=== PATIENT | female | born 1990 | race Caucasian/White ===

== ENCOUNTER 2025-10-08 01:26 | Emergency (ER) | payer MEDICAID ==
[~2025-10-08] VITALS: Ht 167.6 cm; Wt 66.0 kg
[2025-10-08 01:30] VITALS: PULSE 110; RESP 16; O2SAT 100
[2025-10-08 01:35] VITALS: BP 163/73; TEMP 36.8; O2SAT 100
[2025-10-08 03:28] LABS: BASOPHILS % 0.8 % (0.0-2.0); EOSINOPHILS % 1.4 % (0.0-5.0); HEMATOCRIT. 27.7 % (36.0-48.0); HEMOGLOBIN. 8.5 g/dL (12.0-16.0); LYMPHOCYTES % 15.9 % (20.0-50.0); MEAN PLATELET VOLUME 7.6 fl (7.4-10.4); MONOCYTES % 5.5 % (2.0-8.0); NEUTROPHILS % 76.4 % (40.0-76.0); PLATELET 421 x1000/uL (130-400); RED BLOOD CELL COUNT 3.98 mill/uL (4.2-5.4); RED CELL DISTRIBUTION WIDTH 17.6 % (11.6-14.6)
[2025-10-08 03:39] LABS: CREATININE 0.8 mg/dL (0.6-1.0); UREA NITROGEN BLOOD 13 mg/dL (9-23)
[2025-10-08] MEDS: SODIUM CHLORIDE 0.9% 500 ML IV ONE (03:41)
[2025-10-08 03:54] LABS: ADD RBC MORPHOLOGY YES
[2025-10-08 04:51] LABS: CLARITY URINE CLEAR (CLEAR); COLOR URINE YELLOW (YELLOW); GLUCOSE URINE NEGATIVE (NEGATIVE); KETONES URINE NEGATIVE (NEGATIVE); LEUKOCYTE ESTERASE URINE NEGATIVE (NEGATIVE); NITRITE URINE NEGATIVE (NEGATIVE); OCCULT BLOOD URINE NEGATIVE (NEGATIVE); PH URINE 7.5 (4.5-8.0); PROTEIN URINE NEGATIVE (NEGATIVE); SPECIFIC GRAVITY URINE 1.018 (1.005-1.030); UROBILINOGEN URINE 0.2 E.U./dL (0.2-1.0)
[2025-10-08] MEDS ORDERED: FERR324T4 MT (05:21)
[2025-10-08 05:23] LABS: PLATELET ESTIMATE SLIGHTLY INCREASED
[2025-10-08 05:35] LABS: *AMPHETAMINES SCREEN URINE NEGATIVE (NEGATIVE); *BENZODIAZEPINES SCREEN URINE NEGATIVE (NEGATIVE)
[2025-10-08 05:36] LABS: *BARBITURATES SCREEN URINE NEGATIVE (NEGATIVE); *COCAINE SCREEN URINE NEGATIVE (NEGATIVE); CANNABINOID URINE SCREEN NEGATIVE (NEGATIVE); METHADONE URINE SCREEN NEGATIVE (NEGATIVE); OPIATES URINE SCREEN NEGATIVE (NEGATIVE); PHENCYCLIDINE URINE SCREEN NEGATIVE (NEGATIVE)
[2025-10-08 05:58] LABS: ECSTASY MDMA SCREEN URINE NEGATIVE (NEGATIVE)
== END 2025-10-08 05:32 | disposition home or self-care (01) ==
LOC: ER 01:26
DX: R53.1 Weakness (principal); D50.9 Iron deficiency anemia, unspecified; Z79.899 Other long term (current) drug therapy
CPT/HCPCS: 99283; 96360; 96361; 80305; 80048; 81003; 81025; 85025; 36415; J7030